=== PATIENT | female | born 1930 | race Caucasian/White ===

== ENCOUNTER 2017-03-20 16:34 | Observation (INO) | payer MEDICARE, OTHER ==
[~2017-03-20] VITALS: Ht 147.3 cm; Wt 81.4 kg
[~2017-03-20 16:34] MED LIST: COQ130CA4 PO; GLUC500C3 PO; LEVO50TA4 PO; OCUVTAB PO; OYST500T71 PO; PRIN5TAB PO; TAB-TAB PO; TOBRO LEFT EYE; TRUS2SOL LEFT EYE; VITA400C28 PO; [UNRECOGNIZED DRUG - CODE] OS
[2017-03-20 17:45] VITALS: O2SAT 98
[2017-03-20] MEDS ORDERED: SODIUM CHLORIDE 0.9% FLUSH 10 ML FLUSH IVF PRN (18:00)
[2017-03-20] MEDS ORDERED: SODIUM CHLORID 0.9% 500 ML INJ 500 ML IV ONE (18:00)
[2017-03-20] MEDS ORDERED: ASPIRIN 81 MG CHEW TAB PO ONE (18:00)
[2017-03-20 18:04] LABS: AUTOMATED NEUTROPHIL # 5.1 TH/MM3 (1.8-7.7); BASOPHIL % 0.2 % (0.0-2.0); EOSINOPHIL # 0.1 TH/MM3 (0-0.4); EOSINOPHIL % 1.2 % (0.0-4.0); HEMATOCRIT 37.8 % (35.0-46.0); HEMO FLAGS DIFF FINAL; LYMPH % 30.2 % (9.0-44.0); LYMPHOCYTE # 2.4 TH/MM3 (1.0-4.8); MEAN CELL VOLUME 84.5 FL (80.0-100.0); MEAN CORPUSCULAR HEMOGLOBIN 28.3 PG (27.0-34.0); MEAN CORPUSCULAR HGB CONC 33.4 % (32.0-36.0); MONO % 6.6 % (0.0-8.0); NEUT % 61.8 % (16.0-70.0); PLATELET COUNT 270 TH/MM3 (150-450); RED BLOOD COUNT 4.47 MIL/MM3 (4.00-5.30); RED CELL DISTRIBUTION WIDTH 13.2 % (11.6-17.2); WHITE BLOOD COUNT 8.1 TH/MM3 (4.0-11.0)
--- NOTE | 2017-03-20 18:05 | PD ---
HPI Chief Complaint: chest pain Time Seen by Provider: 17:49 Travel History International Travel<30 days: No Contact w/Intl Traveler<30days: No History of Present Illness HPI Patient is a 86-year-old female with history of hypertension, hypothyroidism, hyperlipidemia, presents to emergency with complaints of chest pain. Patient reports that she has been having intermittent chest pain for the past week. Patient reports that nothing brings it chest pain on, reports that when she has these pains, her chest pain is relieved by sitting down. Reports that when she has her symptoms, she feels "clammy," and sob. Patient reports that she is unable to describe her chest pain, reports that it just feels like a "pain to my chest." Patient denies history of IA, denies history of coronary artery disease. She does not see a international logistics manager. Reports that she has not had chest pain in the past. She is a nonsmoker. Patient reports that nothing brings on her chest pain. Reports that when she does have symptoms, it doesn't last long and she cannot tell me how long her symptoms last for. Patient also reports that she has been feeling dizzy. Patient reports that she has been feeling dizzy for the past 2 years, reports no change in his dizziness. Patient denies any fall or trauma to head or neck. Denies any fever or chills, denies any nausea or vomiting this time. Patient with no chest pain at this time. 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) Other Surgery: Yes (DOUBLE MASTCECTOMY) Social History Alcohol Use: No Tobacco Use: No Substance Use: No Allergies-Medications (Allergen,Severity, Reaction): Coded Allergies: Sulfa (Verified Allergy, Mild, SWELL UP, 03/20/17) Reported Meds & Prescriptions Reported Meds & Active Scripts Active Reported Trusopt Opth Drops (Dorzolamide HCl) 2% Soln 1 Drop LEFT EYE BID Tobradex Opth Drops (Tobramycin/Dexamethasone) 0.3-0.1 % Susp 1 Drop LEFT EYE Q6H Levothyroxine (Levothyroxine Sodium) 50 Mcg Tab 50 Mcg PO DAILY Review of Systems General / Constitutional: No: Fever Eyes: No: Visual changes HENT: No: Headaches Cardiovascular: Positive: Chest Pain or Discomfort, Diaphoresis Respiratory: Positive: Shortness of Breath Gastrointestinal: No: Abdominal Pain Genitourinary: No: Dysuria Musculoskeletal: No: Pain Skin: No Rash Neurologic: Positive: Dizziness, No: Weakness Psychiatric: No: Depression Endocrine: No: Polydipsia Hematologic/Lymphatic: No: Easy Bruising Physical Exam Narrative GENERAL: Mild distress SKIN: Focused skin assessment warm/dry. HEAD: Atraumatic. Normocephalic. EYES: Pupils equal and round. No scleral icterus. No injection or drainage. ENT: No nasal bleeding or discharge. Mucous membranes pink and moist. NECK: Trachea midline. No JVD. CARDIOVASCULAR: Regular rate and rhythm. No murmur appreciated. RESPIRATORY: No accessory muscle use. Clear to auscultation. Breath sounds equal bilaterally. GASTROINTESTINAL: Abdomen soft, non-tender, nondistended. Hepatic and splenic margins not palpable. MUSCULOSKELETAL: No obvious deformities. No clubbing. No cyanosis. No edema. NEUROLOGICAL: Awake and alert. No obvious cranial nerve deficits. Motor grossly within normal limits. Normal speech. PSYCHIATRIC: Appropriate mood and affect; insight and judgment normal. Data Data Last Documented VS Vital Signs Date Time Temp Pulse Resp B/P Pulse Ox O2 Delivery O2 Flow Rate FiO2 03/20/17 18:49 69 16 173/62 98 Room Air Orders Electrocardiogram (03/20/17 16:44) Electrocardiogram (03/20/17 17:55) B-Type Natriuretic Peptide (03/20/17 17:55) Ckmb (Isoenzyme) Profile (03/20/17 17:55) Complete Blood Count With Diff (03/20/17 17:55) Comprehensive Metabolic Panel (03/20/17 17:55) Magnesium (Mg) (03/20/17 17:55) Prothrombin Time / Inr (Pt) (03/20/17 17:55) Act Partial Throm Time (Ptt) (03/20/17 17:55) Troponin I (03/20/17 17:55) Lipase (03/20/17 17:55) Chest, Single Ap (03/20/17 17:55) Ecg Monitoring (03/20/17 17:55) Iv Access Insert/Monitor (03/20/17 17:55) Oximetry (03/20/17 17:55) Aspirin Chew (Aspirin Chew) (03/20/17 18:00) Sodium Chloride 0.9% Flush (Ns Flush) (03/20/17 18:00) Sodium Chlorid 0.9% 500 Ml Inj (Ns 500 M (03/20/17 18:00) CKMB (03/20/17 17:50) CKMB% (03/20/17 17:50) Admit Order (Ed Use Only) (03/20/17 19:19) Activity Bed Rest With Brp (03/20/17 19:20) Vital Signs (Adult) Q4H (03/20/17 19:20) Cardiac Rhythm .As Directed (03/20/17 19:20) Notify Dr: Other .PRN (03/20/17 19:20) Notify Dr. Parameters (03/20/17 19:20) Resp Oxygen Nasal Cannula (03/20/17 ) Diet Npo (03/21/17 Breakfast) Ckmb (Isoenzyme) Profile (03/20/17 20:50) Ckmb (Isoenzyme) Profile (03/20/17 23:50) Troponin I (03/20/17 20:50) Troponin I (03/20/17 23:50) Electrocardiogram (03/20/17 19:20) Electrocardiogram (03/20/17 22:20) ^ Obtain (03/20/17 19:20) Aspirin (Aspirin) (03/21/17 09:00) Shoe Repairer Helper / Telemetry HATTIE.Q8H (03/20/17 19:20) Labs Laboratory Tests Test 03/20/17 17:50 White Blood Count 8.1 TH/MM3 Red Blood Count 4.47 MIL/MM3 Hemoglobin 12.6 GM/DL Hematocrit 37.8 % Mean Corpuscular Volume 84.5 FL Mean Corpuscular Hemoglobin 28.3 PG Mean Corpuscular Hemoglobin 33.4 % Concent Red Cell Distribution Width 13.2 % Platelet Count 270 TH/MM3 Mean Platelet Volume 7.1 FL Neutrophils (%) (Auto) 61.8 % Lymphocytes (%) (Auto) 30.2 % Monocytes (%) (Auto) 6.6 % Eosinophils (%) (Auto) 1.2 % Basophils (%) (Auto) 0.2 % Neutrophils # (Auto) 5.1 TH/MM3 Lymphocytes # (Auto) 2.4 TH/MM3 Monocytes # (Auto) 0.5 TH/MM3 Eosinophils # (Auto) 0.1 TH/MM3 Basophils # (Auto) 0.0 TH/MM3 CBC Comment DIFF FINAL Differential Comment Prothrombin Time 10.5 SEC Prothromb Time International 1.0 RATIO Ratio Activated Partial 25.0 SEC Thromboplast Time Sodium Level 136 MEQ/L Potassium Level 3.7 MEQ/L Chloride Level 101 MEQ/L Carbon Dioxide Level 26.6 MEQ/L Anion Gap 8 MEQ/L Blood Urea Nitrogen 17 MG/DL Creatinine 0.89 MG/DL Estimat Glomerular Filtration 60 ML/MIN Rate Random Glucose 104 MG/DL Calcium Level 8.6 MG/DL Magnesium Level 1.9 MG/DL Total Bilirubin 0.2 MG/DL Aspartate Amino Transf 21 U/L (AST/SGOT) Alanine Aminotransferase 20 U/L (ALT/SGPT) Alkaline Phosphatase 55 U/L Total Creatine Kinase 102 U/L Creatine Kinase MB 1.2 NG/ML Troponin I LESS THAN 0.02 NG/ML B-Type Natriuretic Peptide 80 PG/ML Total Protein 7.4 GM/DL Albumin 3.4 GM/DL Lipase 153 U/L [facility] Medical Decision Making Medical Screen Exam Complete: Yes Emergency Medical Condition: Yes Interpretation(s) EKG at 1644: NSR at 81bpm, qt/qtc: 396/433, lbbb, no acute st or t wave changes Differential Diagnosis Differential includes ACS, arrhythmia, electrolyte abnormality, dehydration Narrative Course Patient is an 86-year-old female who presents to emergency room complaints of chest pain which has been intermittent for the past week. Patient endorses of the chest pain is located to her left breast, reports that she feels diaphoresis with shortness of breath with her symptoms. Patient reports that she has resolution of chest pain at this time. Patient was put on a botany technician upon arrival to emergency room. X-ray chest ordered, lab work including cardiac enzymes ordered. Aspirin ordered for patient case reviewed with dr. villegas who accepts pt to service in chest pain center Diagnosis Primary Impression: Chest pain Qualified Code: R07.9 - Chest pain, unspecified type Admitting Information Admitting Physician Requests: Observation Lizzette Hernández DO Mar 20, 2017 18:05
[2017-03-20 18:08] VITALS: BP 179/69; PULSE 74; RESP 18; O2SAT 98
[2017-03-20 18:14] LABS: CHLORIDE 101 MEQ/L (98-107); POTASSIUM 3.7 MEQ/L (3.5-5.1); SODIUM (NA) 136 MEQ/L (136-145)
[2017-03-20 18:18] LABS: ANION GAP 8 MEQ/L (5-15); BICARBONATE 26.6 MEQ/L (21.0-32.0); BLOOD UREA NITROGEN 17 MG/DL (7-18); MAGNESIUM 1.9 MG/DL (1.5-2.5)
[2017-03-20 18:20] LABS: PROTHROMBIN TIME - PATIENT 10.5 SEC (9.8-11.6)
[2017-03-20 18:21] LABS: ALT (GPT) 20 U/L (10-53); AST (GOT) 21 U/L (15-37); GLOMERULAR FILTRATION RATE 60 ML/MIN (>89)
[2017-03-20 18:22] LABS: TOTAL BILIRUBIN ADULT 0.2 MG/DL (0.2-1.0)
[2017-03-20 18:24] LABS: ALKALINE PHOSPHATASE 55 U/L (45-117); CREATINE KINASE 102 U/L (26-192)
--- NOTE | 2017-03-20 18:31 | RADRPT ---
EXAM DATE/TIME: 03/20/2017 18:02 [facility] COMPARISON: No previous studies available for comparison. INDICATIONS : Left sided chest pain and dizziness. MEDICAL HISTORY : Hypertension. Carcinoma, breast SURGICAL HISTORY : Tonsillectomy. Hysterectomy ENCOUNTER: Initial ACUITY: 1 day PAIN SCORE: 7/10 LOCATION: Left chest FINDINGS: A single view of the chest demonstrates the lungs to be symmetrically aerated without evidence of mas s, infiltrate or effusion. Minimal basal atelectasis. The cardiomediastinal contours are unremarkabl e. Osseous structures are intact. CONCLUSION: 1. Minimal basal atelectasis or scarring. Heart size normal. No significant effusion. No pneumothorax . Madi Palma MD on March 20, 2017 at 18:29 Board Certified Radiologist. This report was verified electronically.
[2017-03-20 18:36] LABS: CKMB 1.2 NG/ML (0.5-3.6)
[2017-03-20 18:49] VITALS: BP 173/62; PULSE 69; RESP 16; O2SAT 98
[2017-03-20 20:21] VITALS: BP 168/62
[2017-03-21] MEDS ORDERED: ASPIRIN 325 MG TAB PO SCH (09:00)
--- NOTE | 2017-03-21 17:08 | EKG ---
Date Performed: 03/20/2017 Time Performed: 16:44:11 PTAGE: 86 years EKG: Sinus rhythm WITH OCCASIONAL SUPRAVENTRICULAR PREMATURE COMPLEXES LEFT BUNDLE BRANCH BLOCK ABNORMAL ECG NO PREVIOUS TRACING DOCTOR: Yosvany Govea Interpretating Date/Time 03/21/2017 17:05:24
== END 2017-03-20 20:32 | disposition left against medical advice (07) ==
LOC: PHED 16:34 → PHEDA 19:20
PROVIDERS: ADMIT Hospitalist; ATTEND Hospitalist
DX: R07.89 Other chest pain (principal); I49.3 Ventricular premature depolarization; I44.7 Left bundle-branch block, unspecified; R42 Dizziness and giddiness; R06.02 Shortness of breath; I10 Essential (primary) hypertension; Z85.3 Personal history of malignant neoplasm of breast; E03.9 Hypothyroidism, unspecified; E78.5 Hyperlipidemia, unspecified; H40.9 Unspecified glaucoma
CPT/HCPCS: 71010; 80053; 82550; 82552; 83690; 83735; 83880; 84484; 85025; 85610; 85730; 93005; 96360; 99285; G0378; J7040

== ENCOUNTER 2017-09-06 16:15 | Emergency (ER) | payer MEDICARE, OTHER ==
[~2017-09-06 16:15] MED LIST changes: -COQ130CA4 PO; -GLUC500C3 PO; -OCUVTAB PO; -OYST500T71 PO; -PRIN5TAB PO; -TAB-TAB PO; -VITA400C28 PO; -[UNRECOGNIZED DRUG - CODE] OS
[2017-09-06 16:41] VITALS: BP 204/83; PULSE 79; RESP 16; TEMP 98.5; O2SAT 97
--- NOTE | 2017-09-06 18:33 | PD ---
HPI Chief Complaint: Headache Time Seen by Provider: 18:29 Travel History International Travel<30 days: No Contact w/Intl Traveler<30days: No Traveled to known affect area: No History of Present Illness HPI Pleasant 86-year-old female who reports a fall onto her left side with head trauma 3 weeks ago. States there was a hematoma which has resolved. States she has had a persistent headache since then. States it is one of the worst headache she's ever had. Denies loss of consciousness at that time. Denies any current chest pain shortness of breath urinary or bowel symptoms. Denies any nausea vomiting diarrhea or fever. Otherwise asymptomatic. Ambulating without any new difficulty. 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) Other Surgery: Yes (DOUBLE MASTCECTOMY) Social History Alcohol Use: No Tobacco Use: No Substance Use: No Allergies-Medications (Allergen,Severity, Reaction): Coded Allergies: Sulfa (Sulfonamide Antibiotics) (Unverified Allergy, Mild, SWELL UP, ) Reported Meds & Prescriptions Reported Meds & Active Scripts Active Reported Levothyroxine (Levothyroxine Sodium) 50 Mcg Tab 50 Mcg PO DAILY Review of Systems General / Constitutional: No: Fever Eyes: No: Visual changes HENT: Positive: Headaches Cardiovascular: No: Chest Pain or Discomfort Respiratory: No: Shortness of Breath Gastrointestinal: No: Abdominal Pain Genitourinary: No: Dysuria Musculoskeletal: No: Pain Skin: No Rash Neurologic: No: Weakness Psychiatric: No: Depression Endocrine: No: Polydipsia Hematologic/Lymphatic: No: Easy Bruising Physical Exam Narrative GENERAL: Well-nourished, well-developed patient. SKIN: Focused skin assessment warm/dry. HEAD: Normocephalic. EYES: No scleral icterus. No injection or drainage. NECK: Supple, trachea midline. No JVD or lymphadenopathy. CARDIOVASCULAR: Regular rate and rhythm without murmurs, gallops, or rubs. RESPIRATORY: Breath sounds equal bilaterally. No accessory muscle use. GASTROINTESTINAL: Abdomen soft, non-tender, nondistended. MUSCULOSKELETAL: No cyanosis, or edema. BACK: Nontender without obvious deformity. No CVA tenderness. Data Data Last Documented VS Vital Signs Date Time Temp Pulse Resp B/P (MAP) Pulse Ox O2 Delivery O2 Flow Rate FiO2 09/06/17 16:41 98.5 79 16 204/83 (123) [address] Brain W/O Iv Contrast(Rout) (09/06/17 ) Ct Cerv Spine W/O Contrast (09/06/17 ) MDM Medical Decision Making Medical Screen Exam Complete: Yes Emergency Medical Condition: Yes Differential Diagnosis CVA, cephalgia, fall risk, hematoma Narrative Course Assessment and plan discussed with patient and son at bedside. Physician Communication Physician Communication Case discussed and care transferred to Yaniv Matos MD Sep 06, 2017 18:33
--- NOTE | 2017-09-06 19:04 | RADRPT ---
EXAM DATE/TIME: 09/06/2017 18:45 [facility] COMPARISON: CT BRAIN W/O CONTRAST, July 19, 2016, 9:54. INDICATIONS : Fell and hit head a few weeks ago. Complains of persistent headache. RADIATION DOSE: 51.70 CTDIvol (mGy) MEDICAL HISTORY : Carcinoma, breast. SURGICAL HISTORY : Mastectomy, bilateral. Cholecystectomy.Hysterectomy. ENCOUNTER: Initial ACUITY: 3 weeks PAIN SCALE: 5/10 LOCATION: cranial TECHNIQUE: Multiple contiguous axial images were obtained of the head. Using automated exposure control and adj ustment of the mA and/or kV according to patient size, radiation dose was kept as low as reasonably a chievable to obtain optimal diagnostic quality images. DICOM format image data is available electro nically for review and comparison. FINDINGS: CEREBRUM: The ventricles are normal for age. No evidence of midline shift, mass lesion, hemorrhage or acute in farction. No extra-axial fluid collections are seen. POSTERIOR FOSSA: The cerebellum and brainstem are intact. The 4th ventricle is midline. The cerebellopontine angle i s unremarkable. EXTRACRANIAL: The visualized portion of the orbits is intact. SKULL: The calvaria is intact. No evidence of skull fracture. CONCLUSION: Negative noncontrast head CT. Kelvin Guan MD on September 06, 2017 at 19:01 Board Certified Radiologist. This report was verified electronically.
--- NOTE | 2017-09-06 19:11 | RADRPT ---
EXAM DATE/TIME: 09/06/2017 18:45 [facility] COMPARISON: No previous studies available for comparison. INDICATIONS : Fell and hit head a few weeks ago. Complains of persistent headache. RADIATION DOSE: 23.04 CTDIvol (mGy) MEDICAL HISTORY : Carcinoma, breast. SURGICAL HISTORY : Cholecystectomy. Mastectomy, bilateral.Hysterectomy. ENCOUNTER: Initial ACUITY: 3 weeks PAIN SCALE: 5/10 LOCATION: neck TECHNIQUE: Volumetric scanning of the cervical spine was performed. Multiplanar reconstructions in the sagittal, coronal and oblique axial planes were performed. Using automated exposure control and adjustment o f the mA and/or kV according to patient size, radiation dose was kept as low as reasonably achievable to obtain optimal diagnostic quality images. DICOM format image data is available electronically f or review and comparison. FINDINGS: There is no fracture or subluxation of the cervical spine. Vertebral bodies have normal height. Multilevel disc space narrowing with uncovertebral and facet osteoarthritis noted, moderate at C4/C5 and C6/C7, mild at the other levels. There is left greater than right foraminal stenosis at the C4/C5 and right greater than left foraminal stenosis at C6/C7. No significant spinal stenosis demonstrated at any level. CONCLUSION: Intact cervical spine. Degenerative changes as above. Kelvin Guan MD on September 06, 2017 at 19:07 Board Certified Radiologist. This report was verified electronically.
--- NOTE | 2017-09-06 19:15 | PD ---
Physical Exam Date Seen by Provider: Sep 06, 2017 Time Seen by Provider: 19:12 Narrative Accepted in transfer of care from Dr. Saleh GENERAL: Well-developed well-nourished female in no acute distress no respiratory distress; GCS 15 SKIN: Warm and dry. HEAD: Atraumatic. Normocephalic. NEUROLOGICAL: Awake and alert. No obvious cranial nerve deficits. Motor grossly within normal limits. Five out of 5 muscle strength in the arms and legs. Normal speech. PSYCHIATRIC: Appropriate mood and affect; insight and judgment normal. Data Data Last Documented VS Vital Signs Date Time Temp Pulse Resp B/P (MAP) Pulse Ox O2 Delivery O2 Flow Rate FiO2 09/06/17 16:41 98.5 79 16 204/83 (123) [address] Brain W/O Iv Contrast(Rout) (09/06/17 ) Ct Cerv Spine W/O Contrast (09/06/17 ) Ed Discharge Order (09/06/17 19:32) MDM Medical Record Reviewed: Yes Supervised Visit with RITA: No Interpretation(s) Last Impressions Head CT 09/06/17 0000 Signed Impressions: Service Date/Time: Wednesday, September 06, 2017 18:45 - CONCLUSION: Negative noncontrast head CT. Kelvin Guan MD CT cerv spine w/o contrast: CONCLUSION: Intact cervical spine. Degenerative changes as above. Kelvin Guan MD on September 06, 2017 at 19:07 Board Certified Radiologist. This report was verified electronically. Differential Diagnosis Accepted in transfer of care from Dr. Saleh; please refer to his dictation Narrative Course Accepted in transfer of care from Dr. Saleh; for follow up of pending CT's and disposition Imaging studies resulted and no acute abnormalities identified this is shared with the patient and she is stable for outpatient management. Regarding her headache she is encouraged to follow-up with her primary care provider and may need referral to neurology through her PCP. Patient is encouraged to take as needed Tylenol for headache pain. Patient is continue chronic medications as chronically prescribed. Diagnosis Primary Impression: Post-traumatic headache, not intractable Qualified Codes: G44.309 - Post-traumatic headache, unspecified, not intractable Referrals: Primary Care Physician 1 day Patient Instructions: General Instructions Additional Instruction: May use as tolerated acetaminophen/Tylenol every 4-6 hours for minor headache pain or fever 100.4F or greater Follow-up with your primary care provider Increase fluid hydration Return to the emergency department for any concerns or change in condition Med/Other Pt SpecificInfo: No Change to Meds Disposition: 01 DISCHARGE HOME Condition: Stable Patricia Renae MD Sep 06, 2017 19:15
[2017-09-06 19:45] VITALS: BP 226/113; PULSE 70; RESP 20; O2SAT 92
[2017-09-06 20:00] VITALS: BP 223/91; PULSE 80; RESP 18; O2SAT 93
[2017-09-06] MEDS ORDERED: NORV2.5T PO (20:35)
[2017-09-06] MEDS ORDERED: amLODIPine BESYLATE 5 MG TAB PO ONE (20:45)
[2017-09-06 20:56] VITALS: BP 191/79
== END 2017-09-06 20:57 | disposition home or self-care (01) ==
LOC: PHED 16:15
DX: G44.309 Post-traumatic headache, unspecified, not intractable (principal); M50.30 Other cervical disc degeneration, unspecified cervical region; E78.00 Pure hypercholesterolemia, unspecified; H40.9 Unspecified glaucoma; E07.9 Disorder of thyroid, unspecified; Z79.899 Other long term (current) drug therapy; Z88.2 Allergy status to sulfonamides; Z85.3 Personal history of malignant neoplasm of breast
CPT/HCPCS: 70450; 72125